=== PATIENT | male | born 1985 | race American Indian/Alaskan Native ===

== ENCOUNTER 2016-06-06 13:15 | Inpatient (IN) | payer OTHER ==
[2016-06-06 13:46] LABS: Urine Drugs of Abuse Note Disclamer
--- NOTE | 2016-06-06 13:54 | Emergency Department Report ---
ED General Adult HPI - General Chief complaint: Overdose Stated complaint: OD Time Seen by Provider: 06/06/16 13:45 Source: EMS (ems notes not available at time of chart dictation) Mode of arrival: Stretcher Limitations: Altered Mental Status - History of Present Illness Initial comments: History is limited from the patient because he is somnolent and sleepy. History obtained by speaking to the patient's fiance, Miss Kennedi Villeda; . The patient's fianc, abscess less around 12:00 PM, the patient became depressed after he received a phone call from his son. Today is the patient's birthday. The patient ingested an unknown quantity of Seroquel, 200 mg, Xanax, and marijuana and alcohol. The patient is evasive as to the nature of his ingestion, he will not answer questions directly about homicidality or suicidality. He is somewhat sleepy and difficult to arouse, but he is arousable and is protecting his airway. -: Gradual Consistency: constant Improves with: none Worsens with: none Associated Symptoms: malaise, weakness - Related Data Home Medications Medication Instructions Recorded Confirmed Last Taken Quetiapine Fumarate [SEROquel XR] 200 mg PO HS 06/06/16 06/06/16 06/06/16 Allergies Allergy/AdvReac Type Severity Reaction Status Date / Time Penicillins Allergy Unknown Verified 06/06/16 13:16 ED Review of Systems ROS: Stated complaint: OD Other details as noted in HPI Constitutional: denies: fever Eyes: denies: eye discharge ENT: denies: epistaxis Respiratory: denies: cough Cardiovascular: denies: chest pain Gastrointestinal: denies: vomiting Genitourinary: as per HPI Musculoskeletal: as per HPI Skin: as per HPI Neurological: as per HPI, weakness, confusion Psychiatric: depression ED Past Medical Hx - Past Medical History Previous Medical History?: Yes Hx Psychiatric Treatment: Yes (PTSD) - Surgical History Additional Surgical History: unknown - Social History Smoking Status: Current Every Day Smoker Substance Use Type: Alcohol, Marijuana, Prescribed - Medications Home Medications: Home Medications Medication Instructions Recorded Confirmed Last Taken Type Quetiapine Fumarate [SEROquel XR] 200 mg PO HS 06/06/16 06/06/16 06/06/16 History ED Physical Exam - General Limitations: Physical Limitation General appearance: lethargic - Head Head exam: Present: atraumatic, normocephalic - Eye Eye exam: Present: normal appearance, EOMI. Absent: nystagmus - ENT ENT exam: Present: normal exam, normal orophraynx, mucous membranes moist, normal external ear exam - Neck Neck exam: Present: normal inspection, full ROM. Absent: tenderness, meningismus - Respiratory Respiratory exam: Present: normal lung sounds bilaterally. Absent: respiratory distress, wheezes, rales, rhonchi, stridor, decreased breath sounds - Cardiovascular Cardiovascular Exam: Present: regular rate, normal rhythm, normal heart sounds. Absent: bradycardia, tachycardia, irregular rhythm, systolic murmur, diastolic murmur, rubs, gallop - GI/Abdominal GI/Abdominal exam: Present: soft, normal bowel sounds. Absent: distended, tenderness, guarding, rebound, rigid, pulsatile mass - Rectal Rectal exam: Present: deferred - Extremities Exam Extremities exam: Present: normal inspection, full ROM, normal capillary refill. Absent: pedal edema, joint swelling, calf tenderness - Back Exam Back exam: Present: normal inspection, full ROM. Absent: tenderness, CVA tenderness (R), CVA tenderness (L), muscle spasm, paraspinal tenderness, vertebral tenderness - Neurological Exam Neurological exam: Present: altered, other (the patient will respond to some questions, he moves 4 extremities spontaneously. There is no obvious facial droop.) - Psychiatric Psychiatric exam: Present: flat affect - Skin Skin exam: Present: warm, dry, intact, normal color. Absent: rash ED Course Vital Signs 06/06/16 06/06/16 06/06/16 13:15 13:17 13:20 Temperature 97.8 F Pulse Rate 76 85 Respiratory 17 16 17 Rate Blood Pressure 126/86 126/86 O2 Sat by Pulse 99 98 Oximetry 06/06/16 06/06/16 06/06/16 13:30 13:40 13:50 Temperature Pulse Rate 89 91 H 90 Respiratory 18 14 15 Rate Blood Pressure 133/90 133/90 132/92 O2 Sat by Pulse 98 99 99 Oximetry 06/06/16 06/06/16 06/06/16 14:00 14:10 14:20 Temperature Pulse Rate 94 H 86 80 Respiratory 17 12 17 Rate Blood Pressure 139/90 139/90 124/80 O2 Sat by Pulse 98 98 98 Oximetry 06/06/16 06/06/16 06/06/16 14:23 14:30 14:50 Temperature Pulse Rate 79 82 Respiratory 18 17 20 Rate Blood Pressure 130/87 131/80 O2 Sat by Pulse 100 97 98 Oximetry 06/06/16 15:00 Temperature Pulse Rate 85 Respiratory 17 Rate Blood Pressure 119/73 O2 Sat by Pulse 98 Oximetry - Reevaluation(s) Reevaluation #1: 06/06/16 14:58 Differential diagnosis: Toxic encephalopathy, metabolic encephalopathy, mood disorder, suicidality, depression Assessment and plan: 31-year-old male status post overdose on multiple sedating medications, he presented more than one hour after ingestion, and is somnolent but protecting his airway. He presented to lay in his clinical course for charcoal administration, especially given his somnolent mental status, he is at risk for aspiration, and the risks of charcoal outweigh the benefits. Given his mental status changes, laboratory studies, x-ray of the chest, EKG, cardiac cath lab manager, CT scan is ordered. I don't believe patient is medically stable for psychiatric placement at this time. Case is discussed with the [place] [facility], discussed with Safia, agrees with supportive care , recommends four-hour Tylenol and aspirin level. Case is discussed with the Hospital physician, Dr. Walsh, who accepts the patient to his service. Inpatient team to follow up on repeat Tylenol and aspirin levels. ED Medical Decision Making - Lab Data Result diagrams: 06/06/16 13:37 06/06/16 13:37 Vital Signs 06/06/16 06/06/16 06/06/16 13:15 13:17 13:20 Temperature 97.8 F Pulse Rate 76 85 Respiratory 17 16 17 Rate Blood Pressure 126/86 126/86 O2 Sat by Pulse 99 98 Oximetry 06/06/16 06/06/16 06/06/16 13:30 13:40 13:50 Temperature Pulse Rate 89 91 H 90 Respiratory 18 14 15 Rate Blood Pressure 133/90 133/90 132/92 O2 Sat by Pulse 98 99 99 Oximetry 06/06/16 06/06/16 06/06/16 14:00 14:10 14:20 Temperature Pulse Rate 94 H 86 80 Respiratory 17 12 17 Rate Blood Pressure 139/90 139/90 124/80 O2 Sat by Pulse 98 98 98 Oximetry 06/06/16 06/06/16 06/06/16 14:23 14:30 14:50 Temperature Pulse Rate 79 82 Respiratory 18 17 20 Rate Blood Pressure 130/87 131/80 O2 Sat by Pulse 100 97 98 Oximetry Labs 06/06/16 06/06/16 06/06/16 13:31 13:31 13:37 WBC RBC Hgb Hct MCV MCH MCHC RDW Plt Count Lymph % (Auto) [place] % (Auto) Eos % (Auto) Baso % (Auto) Lymph # [place] # Eos # Baso # Seg Neutrophils % Seg Neutrophils # Sodium 141 Potassium 4.0 Chloride 101.4 Carbon Dioxide 26 Anion Gap 18 BUN 12 Creatinine 1.1 Estimated GFR > 60 BUN/Creatinine Ratio 10.90 Glucose 90 Calcium 9.1 Total Creatine Kinase Urine Color Yellow Urine Turbidity Clear Urine pH 6.0 Ur Specific [place] 1.013 Urine Protein <15 mg/dl Urine Glucose (UA) Neg Urine Ketones Neg Urine Blood Neg Urine Nitrite Neg Urine Bilirubin Neg Urine Urobilinogen < 2.0 Ur Leukocyte Esterase Neg Urine WBC (Auto) 1.0 Urine RBC (Auto) 1.0 Urine Mucus Few Urine Opiates Screen Presumptive negative Urine Methadone Screen Presumptive negative Ur Barbiturates Screen Presumptive negative Ur Phencyclidine Scrn Presumptive negative Ur Amphetamines Screen Presumptive negative U Benzodiazepines Scrn Presumptive positive Urine Cocaine Screen Presumptive negative U Marijuana (THC) Screen Presumptive positive 06/06/16 06/06/16 13:37 13:57 WBC 5.3 RBC 4.92 Hgb 14.4 Hct 44.2 MCV 90 MCH 29 MCHC 33 RDW 14.8 Plt Count 147 Lymph % (Auto) 36.5 H [place] % (Auto) 6.0 Eos % (Auto) 3.7 Baso % (Auto) 2.4 H Lymph # 1.9 [place] # 0.3 Eos # 0.2 Baso # 0.1 Seg Neutrophils % 51.4 Seg Neutrophils # 2.7 Sodium Potassium Chloride Carbon Dioxide Anion Gap BUN Creatinine Estimated GFR BUN/Creatinine Ratio Glucose Calcium Total Creatine Kinase 367 H Urine Color Urine Turbidity Urine pH Ur Specific [place] Urine Protein Urine Glucose (UA) Urine Ketones Urine Blood Urine Nitrite Urine Bilirubin Urine Urobilinogen Ur Leukocyte Esterase Urine WBC (Auto) Urine RBC (Auto) Urine Mucus Urine Opiates Screen Urine Methadone Screen Ur Barbiturates Screen Ur Phencyclidine Scrn Ur Amphetamines Screen U Benzodiazepines Scrn Urine Cocaine Screen U Marijuana (THC) Screen - EKG Data When compared to previous EKG there are: previous EKG unavailable 06/06/16 15:00 normal sinus, 89 bpm, QRS 88 ms, QTC 433 ms, normal axis, not morphologically consistent with STEMI, there is no prior EKG available for comparison. - Radiology Data Radiology results: report reviewed, image reviewed X-ray of the chest is negative. Nonspecific cardiomegaly is noted. Noncontrast CT scan of the brain is negative. Critical care attestation.: If time is entered above; I have spent that time in minutes in the direct care of this critically ill patient, excluding procedure time. ED Disposition Clinical Impression: Overdose Disposition: OP ADMITTED IP TO THIS HOSP Is pt being admited?: Yes Condition: Good
[2016-06-06 14:07] LABS: Anion Gap 18 mmol/L; Blood Urea Nitrogen 12 mg/dL (9-20); Calcium 9.1 mg/dL (8.4-10.2); Carbon Dioxide 26 mmol/L (22-30); Chloride 101.4 mmol/L (98-107); Glucose 90 mg/dL (75-100); Sodium 141 mmol/L (137-145)
[2016-06-06 14:11] LABS: Basophils % (Auto) 2.4 % (0.0-1.8); Eosinophils % (Auto) 3.7 % (0.0-4.3); Hematocrit 44.2 % (35.5-45.6); Hemoglobin 14.4 gm/dl (11.8-15.2); Mean Corpuscular HGB Conc 33 % (32-34); Mean Corpuscular Hemoglobin 29 pg (28-32); Mean Corpuscular Volume 90 fl (84-94); Platelet Count 147 K/mm3 (140-440); Red Blood Count 4.92 M/mm3 (3.65-5.03); Red Cell Distribution Width 14.8 % (13.2-15.2); White Blood Count 5.3 K/mm3 (4.5-11.0)
[2016-06-06 14:17] LABS: Bilirubin,Urine NEG (Negative); Blood,Urine NEG (Negative); Ketones,Urine NEG (Negative); Leukocyte Esterase,Urine NEG (Negative); Mucus,Urine FEW /HPF; Nitrite,Urine NEG (Negative); Protein,Urine <15 mg/dL mg/dL (Negative); Urobilinogen,Urine < 2.0 mg/dL (<2.0)
--- NOTE | 2016-06-06 15:07 | Cat Scan Report ---
FINAL REPORT PROCEDURE: CT HEAD/BRAIN WO CON TECHNIQUE: Computerized tomography of the head was performed without contrast material. HISTORY: ams COMPARISON: No prior studies are available for comparison. FINDINGS: Small retention cyst is suspected in the right maxillary sinus. Mastoid air cells appear clear. No calvarial fracture is seen. Cerebral ventricles are normal in size. No acute intracranial hemorrhage or mass effect is seen. No CVA is seen. IMPRESSION: Mild changes of chronic sinusitis are seen. No intracranial abnormality is seen.
--- NOTE | 2016-06-06 15:51 | History and Physical Report ---
History of Present Illness Chief complaint: confused History of present illness: 31 YO Male with PTSD, nicotine Dependence, Polysubstance Abuse presents to ED for evaluation. Pt lethargic and unable to give history. History taken from marilu, Miss Kennedi Villeda([phone]). The patient's fianc, states that the patient became upset around 2400hrs after a distressing telephone call from his son. The patient subsequently ingested an unknown quantity of Seroquel, 200 mg, Xanax, as well as marijuana and alcohol. The patient is lethargic and will not answer questions regarding his intentions. Poison control notified in ED. Pt is able to protect his airway. Past History Past Medical History: other (PSA, icotine Dependence, PTSD) Past Surgical History: No surgical history, Other (reviewed) Social history: single, smoking, alcohol abuse, prescription drug abuse Family history: hypertension Medications and Allergies Allergies Allergy/AdvReac Type Severity Reaction Status Date / Time Penicillins Allergy Unknown Verified 06/06/16 13:16 Home Medications Medication Instructions Recorded Confirmed Last Taken Type Quetiapine Fumarate [SEROquel XR] 200 mg PO HS 06/06/16 06/06/16 06/06/16 History Review of Systems ROS unobtainable: due to mental status Constitutional: other Exam - Constitutional Vitals: Temp Pulse Resp BP Pulse Ox 97.8 F 85 17 119/73 98 06/06/16 13:17 06/06/16 15:00 06/06/16 15:00 06/06/16 15:00 06/06/16 15:00 General appearance: Present: mild distress - EENT Eyes: Present: PERRL ENT: hearing intact, clear oral mucosa - Neck Neck: Present: supple, normal ROM - Respiratory Respiratory effort: normal Respiratory: bilateral: CTA - Cardiovascular Heart Sounds: Present: S1 & S2. Absent: rub, click - Extremities Extremities: pulses symmetrical, No edema Peripheral Pulses: within normal limits - Abdominal General gastrointestinal: Present: soft, non-tender, non-distended, normal bowel sounds Male genitourinary: Present: normal - Integumentary Integumentary: Present: clear, warm, dry - Musculoskeletal Musculoskeletal: generalized weakness - Psychiatric Psychiatric: no intact judgment & insight, no memory intact, no agitated - Neurologic Neurologic: CNII-XII intact, moves all extremities Results - Labs CBC & Chem 7: 06/06/16 13:37 06/06/16 13:37 Labs: Abnormal lab results 06/06/16 06/06/16 06/06/16 Range/Units 13:37 13:37 13:37 Lymph % (Auto) 36.5 H (13.4-35.0) % Baso % (Auto) 2.4 H (0.0-1.8) % Total Creatine Kinase (55-170) units/L Salicylates < 0.3 L (2.8-20.0) mg/dL Plasma/Serum Alcohol 0.10 H (0-0.07) gm% 06/06/16 Range/Units 13:57 Lymph % (Auto) (13.4-35.0) % Baso % (Auto) (0.0-1.8) % Total Creatine Kinase 367 H (55-170) units/L Salicylates (2.8-20.0) mg/dL Plasma/Serum Alcohol (0-0.07) gm% Assessment and Plan - Patient Problems (1) Encephalopathy Current Visit: Yes Status: Acute Plan to address problem: IVF, suportive care, remote telemetry montoring, supportive care, neuro checks (2) Suicide attempt Current Visit: Yes Status: Acute Plan to address problem: Psych consulted: [address], supportive care. (3) Overdose Current Visit: Yes Status: Acute Qualifiers: Encounter type: E Injury intent: I Plan to address problem: supportive care, IVF, monitor uop q shift, neuro checks (4) DVT prophylaxis Current Visit: Yes Status: Acute
[2016-06-06] MEDS ORDERED: TYLENOL PO PRN (16:30)
[2016-06-06] MEDS ORDERED: ZOFRAN IV PRN (16:30)
[2016-06-06] MEDS ORDERED: VITAMIN B-1 100 MG, FOLVITE 1 MG, INFUVITE 10 ML in NACL 0.9% 1000 ML 1,000 ML IV ONE (16:32)
[2016-06-06] MEDS: DUONEB 0.5 MG-3 MG/3 ML SOLN IH SCH ×2 (17:42→20:03)
[2016-06-06] MEDS ORDERED: PROVENTIL IH PRN (21:07)
[2016-06-07] MEDS: NACL 0.45% 1000 ML 1,000 ML IV SCH ×2 (03:35→13:24)
--- NOTE | 2016-06-07 09:53 | XRay Report ---
Single view chest: History: AMS. Shortness of breath. Findings: Borderline cardiomegaly. Trachea is midline. No consolidation, pneumothorax or pleural effusion. Impression: No acute cardiopulmonary findings.
--- NOTE | 2016-06-07 12:31 | Progress Note ---
Assessment and Plan Assessment and plan: 1. Acute toxic encephalopathy Secondary to overdose IV fluids, frequent neuro checks, supportive care Improving 2. Overdose Overdose of combination of Seroquel, Xanax, alcohol and marijuana with suicide intent Placed on 1013 Awaiting psychiatry evaluation 3. Suicide attempt See above 4. Polysubstance abuse Psych consulted, will need counseling/? inpatient detox 5. Tobacco dependence Counselled regarding importance of quitting 7. PTSD 8. DVT prophylaxis History Interval history: mental status improved, no specific complaints Hospitalist Physical - Constitutional Vitals: Temp Pulse Resp BP Pulse Ox 98.8 F 77 18 124/80 100 06/07/16 11:20 06/07/16 11:20 06/07/16 11:20 06/07/16 11:20 06/07/16 11:20 General appearance: Present: no acute distress, obese - EENT Eyes: Present: PERRL, EOM intact. Absent: scleral icterus, conjunctival injection - Neck Neck: Present: supple, normal ROM. Absent: masses or JVD - Respiratory Respiratory effort: normal Respiratory: bilateral: CTA, negative: rhonchi, wheezing - Cardiovascular Rhythm: regular Heart Sounds: Present: S1 & S2. Absent: systolic murmur - Extremities Extremities: no ischemia - Abdominal General gastrointestinal: soft, non-tender, non-distended, normal bowel sounds - Psychiatric Psychiatric: depressed - Neurologic Neurologic: CNII-XII intact, no focal deficits Results - Labs CBC & Chem 7: 06/06/16 13:37 06/06/16 13:37 Labs: Laboratory Last Values WBC 5.3 K/mm3 (4.5-11.0) 06/06/16 13:37 RBC 4.92 M/mm3 (3.65-5.03) 06/06/16 13:37 Hgb 14.4 gm/dl (11.8-15.2) 06/06/16 13:37 Hct 44.2 % (35.5-45.6) 06/06/16 13:37 MCV 90 fl (84-94) 06/06/16 13:37 MCH 29 pg (28-32) 06/06/16 13:37 MCHC 33 % (32-34) 06/06/16 13:37 RDW 14.8 % (13.2-15.2) 06/06/16 13:37 Plt Count 147 K/mm3 (140-440) 06/06/16 13:37 Lymph % (Auto) 36.5 % (13.4-35.0) H 06/06/16 13:37 [place] % (Auto) 6.0 % (0.0-7.3) 06/06/16 13:37 Eos % (Auto) 3.7 % (0.0-4.3) 06/06/16 13:37 Baso % (Auto) 2.4 % (0.0-1.8) H 06/06/16 13:37 Lymph # 1.9 K/mm3 (1.2-5.4) 06/06/16 13:37 [place] # 0.3 K/mm3 (0.0-0.8) 06/06/16 13:37 Eos # 0.2 K/mm3 (0.0-0.4) 06/06/16 13:37 Baso # 0.1 K/mm3 (0.0-0.1) 06/06/16 13:37 Seg Neutrophils % 51.4 % (40.0-70.0) 06/06/16 13:37 Seg Neutrophils # 2.7 K/mm3 (1.8-7.7) 06/06/16 13:37 Sodium 141 mmol/L (137-145) 06/06/16 13:37 Potassium 4.0 mmol/L (3.6-5.0) 06/06/16 13:37 Chloride 101.4 mmol/L (98-107) 06/06/16 13:37 Carbon Dioxide 26 mmol/L (22-30) 06/06/16 13:37 Anion Gap 18 mmol/L 06/06/16 13:37 BUN 12 mg/dL (9-20) 06/06/16 13:37 Creatinine 1.1 mg/dL (0.8-1.5) 06/06/16 13:37 Estimated GFR > 60 ml/min 06/06/16 13:37 BUN/Creatinine Ratio 10.90 % 06/06/16 13:37 Glucose 90 mg/dL (75-100) 06/06/16 13:37 Calcium 9.1 mg/dL (8.4-10.2) 06/06/16 13:37 Total Creatine Kinase 367 units/L (55-170) H 06/06/16 13:57 Urine Color Yellow (Yellow) 06/06/16 13:31 Urine Turbidity Clear (Clear) 06/06/16 13:31 Urine pH 6.0 (5.0-7.0) 06/06/16 13:31 Ur Specific [place] 1.013 (1.003-1.030) 06/06/16 13:31 Urine Protein <15 mg/dl mg/dL (Negative) 06/06/16 13:31 Urine Glucose (UA) Neg mg/dL (Negative) 06/06/16 13:31 Urine Ketones Neg mg/dL (Negative) 06/06/16 13:31 Urine Blood Neg (Negative) 06/06/16 13:31 Urine Nitrite Neg (Negative) 06/06/16 13:31 Urine Bilirubin Neg (Negative) 06/06/16 13:31 Urine Urobilinogen < 2.0 mg/dL (<2.0) 06/06/16 13:31 Ur Leukocyte Esterase Neg (Negative) 06/06/16 13:31 Urine WBC (Auto) 1.0 /HPF (0.0-6.0) 06/06/16 13:31 Urine RBC (Auto) 1.0 /HPF (0.0-6.0) 06/06/16 13:31 Urine Mucus Few /HPF 06/06/16 13:31 Salicylates < 0.3 mg/dL (2.8-20.0) L 06/06/16 16:30 Urine Opiates Screen Presumptive negative 06/06/16 13:31 Urine Methadone Screen Presumptive negative 06/06/16 13:31 Acetaminophen < 15.0 ug/mL (10.0-30.0) 06/06/16 16:30 Ur Barbiturates Screen Presumptive negative 06/06/16 13:31 Ur Phencyclidine Scrn Presumptive negative 06/06/16 13:31 Ur Amphetamines Screen Presumptive negative 06/06/16 13:31 U Benzodiazepines Scrn Presumptive positive 06/06/16 13:31 Urine Cocaine Screen Presumptive negative 06/06/16 13:31 U Marijuana (THC) Screen Presumptive positive 06/06/16 13:31 Drugs of Abuse Note Disclamer 06/06/16 13:31 Plasma/Serum Alcohol 0.10 gm% (0-0.07) H 06/06/16 13:37
[2016-06-08] MEDS: NACL 0.45% 1000 ML 1,000 ML IV SCH (00:10)
--- NOTE | 2016-06-08 11:08 | Progress Note ---
Assessment and Plan Assessment and plan: Patient is a 31-year-old man history of tobacco dependency, mental disorder with depression and PTSD who presents with altered mental status after ingesting combination of Seroquel, alcohol and Xanax 1. Acute toxic encephalopathy Secondary to overdose IV fluids, frequent neuro checks, supportive care Improving 2. Overdose Overdose of combination of Seroquel, Xanax, alcohol and marijuana with suicide intent Placed on 1013 Awaiting psychiatry evaluation 3. Suicide attempt See above 4. Polysubstance abuse Psych consulted, will need counseling/? inpatient detox 5. Tobacco dependence Counselled regarding importance of quitting 7. PTSD 8. DVT prophylaxis Disposition: Await psych evaluation, sitter at bedside patient is under 1013, order a.m. labs History Interval history: Patient seen and examined. Follow up on altered mental status which has resolved.. Overnight uneventful. No cp, sob, n/v or severe headaches. Imaging, old records, testing, labs, nursing notes reviewed. Plan discussed with patient. Girlfriend Ms Villeda at bedside Hospitalist Physical - Physical exam Narrative exam: GEN: WDWN, NAD, AWAKE, ALERT, ORIENTATED 3 HEENT: NCAT, PERRL, EOMI, OP CLEAR NECK: SUPPLE, NO THYROMEGALY, NO JVD, NO LAD CVS: RRR, NORMAL S1S2 LUNGS/CHEST: CTA B, NORMAL CHEST EXPANSION B, GOOD AIR ENTRY B ABD: SOFT NTND, GBS, NO REBOUND OR GUARDING EXT/SKIN: NO SIGNIFICANT EDEMA OR RASH MSK: FROM X 4 EXTREMITIES NEURO: CN 2-12 GROSSLY INTACT, NO new FOCAL DEFICITS PSY: CALM - Constitutional Vitals: Temp Pulse Resp BP Pulse Ox 99 F 69 18 142/79 98 06/08/16 09:17 06/08/16 09:17 06/08/16 09:17 06/08/16 09:17 06/08/16 09:58 General appearance: Present: no acute distress, obese Results - Labs CBC & Chem 7: 06/06/16 13:37 06/06/16 13:37 Labs: Laboratory Last Values WBC 5.3 K/mm3 (4.5-11.0) 06/06/16 13:37 RBC 4.92 M/mm3 (3.65-5.03) 06/06/16 13:37 Hgb 14.4 gm/dl (11.8-15.2) 06/06/16 13:37 Hct 44.2 % (35.5-45.6) 06/06/16 13:37 MCV 90 fl (84-94) 06/06/16 13:37 MCH 29 pg (28-32) 06/06/16 13:37 MCHC 33 % (32-34) 06/06/16 13:37 RDW 14.8 % (13.2-15.2) 06/06/16 13:37 Plt Count 147 K/mm3 (140-440) 06/06/16 13:37 Lymph % (Auto) 36.5 % (13.4-35.0) H 06/06/16 13:37 [place] % (Auto) 6.0 % (0.0-7.3) 06/06/16 13:37 Eos % (Auto) 3.7 % (0.0-4.3) 06/06/16 13:37 Baso % (Auto) 2.4 % (0.0-1.8) H 06/06/16 13:37 Lymph # 1.9 K/mm3 (1.2-5.4) 06/06/16 13:37 [place] # 0.3 K/mm3 (0.0-0.8) 06/06/16 13:37 Eos # 0.2 K/mm3 (0.0-0.4) 06/06/16 13:37 Baso # 0.1 K/mm3 (0.0-0.1) 06/06/16 13:37 Seg Neutrophils % 51.4 % (40.0-70.0) 06/06/16 13:37 Seg Neutrophils # 2.7 K/mm3 (1.8-7.7) 06/06/16 13:37 Sodium 141 mmol/L (137-145) 06/06/16 13:37 Potassium 4.0 mmol/L (3.6-5.0) 06/06/16 13:37 Chloride 101.4 mmol/L (98-107) 06/06/16 13:37 Carbon Dioxide 26 mmol/L (22-30) 06/06/16 13:37 Anion Gap 18 mmol/L 06/06/16 13:37 BUN 12 mg/dL (9-20) 06/06/16 13:37 Creatinine 1.1 mg/dL (0.8-1.5) 06/06/16 13:37 Estimated GFR > 60 ml/min 06/06/16 13:37 BUN/Creatinine Ratio 10.90 % 06/06/16 13:37 Glucose 90 mg/dL (75-100) 06/06/16 13:37 POC Glucose 90 (70-105) 06/06/16 13:23 Calcium 9.1 mg/dL (8.4-10.2) 06/06/16 13:37 Total Creatine Kinase 367 units/L (55-170) H 06/06/16 13:57 Urine Color Yellow (Yellow) 06/06/16 13:31 Urine Turbidity Clear (Clear) 06/06/16 13:31 Urine pH 6.0 (5.0-7.0) 06/06/16 13:31 Ur Specific [place] 1.013 (1.003-1.030) 06/06/16 13:31 Urine Protein <15 mg/dl mg/dL (Negative) 06/06/16 13:31 Urine Glucose (UA) Neg mg/dL (Negative) 06/06/16 13:31 Urine Ketones Neg mg/dL (Negative) 06/06/16 13:31 Urine Blood Neg (Negative) 06/06/16 13:31 Urine Nitrite Neg (Negative) 06/06/16 13:31 Urine Bilirubin Neg (Negative) 06/06/16 13:31 Urine Urobilinogen < 2.0 mg/dL (<2.0) 06/06/16 13:31 Ur Leukocyte Esterase Neg (Negative) 06/06/16 13:31 Urine WBC (Auto) 1.0 /HPF (0.0-6.0) 06/06/16 13:31 Urine RBC (Auto) 1.0 /HPF (0.0-6.0) 06/06/16 13:31 Urine Mucus Few /HPF 06/06/16 13:31 Salicylates < 0.3 mg/dL (2.8-20.0) L 06/06/16 16:30 Urine Opiates Screen Presumptive negative 06/06/16 13:31 Urine Methadone Screen Presumptive negative 06/06/16 13:31 Acetaminophen < 15.0 ug/mL (10.0-30.0) 06/06/16 16:30 Ur Barbiturates Screen Presumptive negative 06/06/16 13:31 Ur Phencyclidine Scrn Presumptive negative 06/06/16 13:31 Ur Amphetamines Screen Presumptive negative 06/06/16 13:31 U Benzodiazepines Scrn Presumptive positive 06/06/16 13:31 Urine Cocaine Screen Presumptive negative 06/06/16 13:31 U Marijuana (THC) Screen Presumptive positive 06/06/16 13:31 Drugs of Abuse Note Disclamer 06/06/16 13:31 Plasma/Serum Alcohol 0.10 gm% (0-0.07) H 06/06/16 13:37
[2016-06-08] MEDS: FOLVITE PO SCH (16:43)
[2016-06-08] MEDS: VITAMIN B-1 PO SCH (16:43)
[2016-06-09 05:41] LABS: Hematocrit 45.1 % (35.5-45.6); Hemoglobin 14.8 gm/dl (11.8-15.2); Mean Corpuscular HGB Conc 33 % (32-34); Mean Corpuscular Hemoglobin 29 pg (28-32); Mean Corpuscular Volume 89 fl (84-94); Platelet Count 153 K/mm3 (140-440); Red Blood Count 5.05 M/mm3 (3.65-5.03); Red Cell Distribution Width 14.4 % (13.2-15.2); White Blood Count 4.9 K/mm3 (4.5-11.0)
[2016-06-09 05:59] LABS: Anion Gap 19 mmol/L; Blood Urea Nitrogen 10 mg/dL (9-20); Calcium 9.1 mg/dL (8.4-10.2); Carbon Dioxide 24 mmol/L (22-30); Chloride 99.7 mmol/L (98-107); Glucose 99 mg/dL (75-100); Potassium 4.2 mmol/L (3.6-5.0); Sodium 138 mmol/L (137-145)
--- NOTE | 2016-06-09 08:09 | Admit Criteria Form ---
Admission Criteria Documentation: DRUG INGESTION OR OVERDOSE Clinical Indications for Admission to Inpatient Care ( Place 'X' for any and all applicable criteria): Admission is indicated for severe toxicity as indicated by ANY ONE of the following(1)(2)(3)(4)(5)(6): [X]I. Inpatient admission required rather than observation care (Also use Drug Ingestion or Overdose: Observation Care guideline as appropriate) because of ANY ONE of the following: [X]a) Altered mental status that is severe or persistent [ ]b) Clinical finding (eg, metabolic acidosis, hypoglycemia, bradycardia) that is severe or persistent [ ]c) Toxic drug level that is persistent [ ]d) Psychiatric risk status not acceptable for outpatient management [ ]e) Continuous intravenous infusion of anticoagulation, platelet inhibitor, vasoactive, or antiarrhythmic medication (15)(16) [X]f) Other condition, treatment or monitoring requiring inpatient admission [ ]II. Respiratory abnormalities [ ]III. Specific finding indicating severe and likely prolonged drug toxicity [ ]IV. Hemodynamic instability [ ]V. Dangerous arrhythmia [ ]. Hypertension requiring inpatient treatment Extended stay beyond goal length of stay may be needed for (4): [ ]a) Neurologic or respiratory compromise [ ]b) Hemodynamic instability [ ]c) Persistent toxic drug levels (25) [ ]d) Severe drug toxicities or complications [ ]e) Ongoing antidote treatment (eg, acetaminophen overdose)(5) [ ]f) Older patients(65 years or older) The original [facility] content created by [employer] has been revised. The portions of the content which have been revised are identified through the use of italic text or in bold, and [facility] has neither reviewed nor approved the modified material. All other unmodified content is copyright [facility] [employer]. Please see references footnoted in the original [facility] edition 2016 Admission Criteria Met: Yes
[2016-06-09] MEDS: FOLVITE PO SCH (10:07)
[2016-06-09] MEDS: VITAMIN B-1 PO SCH (10:07)
--- NOTE | 2016-06-09 16:04 | Progress Note ---
Assessment and Plan Assessment and Plan 1. Acute toxic encephalopathy secondary to overdose: Improving. Supportive care , IVF. 2. Suicidal attempt: On 101, awaiting psych eval. 3. Polysubstance abuse: Awaiting psych eval, counseled patient. 4. Tobacoo use do: Counseled on tobacco cessation. 5. PTSD: Continue current management. 6. DVT prophylaxis Subjective Date of service: 06/09/16 Interval history: No overnight events. Awaiting psych. Objective - Constitutional Vitals: Vital Signs - 12hr 06/09/16 08:00 Temperature 98.8 F Pulse Rate [ 68 Right Radial] Respiratory 18 Rate Blood Pressure 143/92 [Right Arm] O2 Sat by Pulse 95 Oximetry General appearance: Present: no acute distress, well-nourished - EENT Eyes: PERRL, EOM intact ENT: hearing intact, clear oral mucosa Ears: bilateral: normal - Neck Neck: supple, normal ROM - Respiratory Respiratory effort: normal Respiratory: bilateral: CTA - Breasts Breasts: normal - Cardiovascular Rhythm: regular Heart Sounds: Present: S1 & S2. Absent: gallop, rub Extremities: pulses intact, No edema, normal color, Full ROM - Gastrointestinal General gastrointestinal: Present: soft, non-tender, non-distended, normal bowel sounds - Genitourinary Male genitourinary: normal - Integumentary Integumentary: clear, warm, dry - Musculoskeletal Musculoskeletal: 1, strength equal bilaterally - Neurologic Neurologic: moves all extremities - Psychiatric Psychiatric: memory intact, appropriate mood/affect, intact judgment & insight - Labs CBC & Chem 7: 06/09/16 05:22 06/09/16 05:22 Labs: Abnormal lab results 06/09/16 Range/Units 05:22 RBC 5.05 H (3.65-5.03) M/mm3
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
[2016-06-09] MEDS ORDERED: PAXIL PO SCH (18:30)
[2016-06-09] MEDS ORDERED: MINIPRESS PO SCH (22:00)
--- NOTE | 2016-06-09 22:36 | Event Note ---
Date: 06/09/16 At 1612 06/09/16 I discussed Black Box warning with patient about possible suicidality and medication induced darryl (SSRIs).
[2016-06-10] MEDS: VITAMIN B-1 PO SCH (09:59)
[2016-06-10] MEDS: FOLVITE PO SCH (09:59)
[2016-06-10] MEDS ORDERED: PAXIL PO SCH (10:00)
--- NOTE | 2016-06-10 13:29 | Progress Note ---
Assessment and Plan Assessment and Plan 1. Acute toxic encephalopathy secondary to overdose: Resolved 2. Suicidal attempt: On 101, psych following patient, no longer suicidal. Has his girl friend by his side. Want to take him home and be supportive. 3. Polysubstance abuse: Psych following patient. 4. Tobacoo use do: Counseled on tobacco cessation. 5. PTSD: On Paxil 20 mg qd. 6. Nightmares: On Prazosin 1 mg qhs. 7. DVT prophylaxis 8. Disposition. Discussed with the psychiatrist, Dr. Harp who advised that pt can be off 1013 and can be discharged home. Subjective Date of service: 06/10/16 Principal diagnosis: Suicide ateempt, Depression, PTSD Interval history: No suicidal or homicidal ideations, has nightmares. Objective - Constitutional Vitals: Vital Signs - 12hr 06/10/16 06/10/16 07:00 09:00 Temperature 98 F Pulse Rate [ 77 Right Radial] Respiratory 18 20 Rate Blood Pressure 111/64 [Right Arm] O2 Sat by Pulse 98 100 Oximetry General appearance: Present: no acute distress, well-nourished - EENT Eyes: PERRL, EOM intact ENT: hearing intact, clear oral mucosa Ears: bilateral: normal - Neck Neck: supple, normal ROM - Respiratory Respiratory effort: normal Respiratory: bilateral: CTA - Breasts Breasts: normal - Cardiovascular Rhythm: regular Heart Sounds: Present: S1 & S2. Absent: gallop, rub Extremities: pulses intact, No edema, normal color, Full ROM - Gastrointestinal General gastrointestinal: Present: soft, non-tender, non-distended, normal bowel sounds - Genitourinary Male genitourinary: normal - Integumentary Integumentary: clear, warm, dry - Musculoskeletal Musculoskeletal: 1, strength equal bilaterally - Neurologic Neurologic: moves all extremities - Psychiatric Psychiatric: memory intact, appropriate mood/affect, intact judgment & insight - Labs CBC & Chem 7: 06/09/16 05:22 06/09/16 05:22
[2016-06-10 17:10] VITALS: BP 115/84
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
--- NOTE | 2016-06-10 18:59 | Discharge Summary ---
Providers - Providers Date of Admission: 06/06/16 16:30 Date of discharge: 06/10/16 Attending physician: JOSE ANTONIO DUPREE Psychiatrist - Dr Harp Primary care physician: HAND SOLE SEWER Hospitalization Reason for admission: Polysubstance ovrdose with suicidal intent Condition: Good Pertinent studies: CT head was unramarkable for any acute event Chest Xray was normal Procedures: none Hospital course: Pt is a 31 y/o male with PTSD an tobacco dependent who took an over dose of his Xanax, Seroquel, alcohol and Marijuana because he received a distress call from his son. Presented to the ED at [facility], [facility]. CT of the brain was unremarkable and CXR was normal. Pt could clear his air way. Was admitted on 1012. He had since improved his level of cognition. Psych consult was obtained on admission. Pt was clear to go home by Psychiatrist Dr. Harp, as he has a strong support with his girlfriend who accompanied him to the hospital in the first place and has been by his bed side since then. Pt verbalized not having any more suicidal thoughts. He is therefore being discharged to f/u with his psychiatrist and PCP in 7 days and 3 days respectively. Disposition: DISCHARGED TO HOME OR SELFCARE Core Measure Documentation - Palliative Care Palliative Care/ Comfort Measures: Not Applicable - Core Measures Any of the following diagnoses?: none Exam - Constitutional Vitals: Temp Pulse Resp BP Pulse Ox 98.4 F 84 18 115/84 98 06/10/16 17:00 06/10/16 17:00 06/10/16 17:00 06/10/16 17:00 06/10/16 17:00 General appearance: Present: no acute distress, well-nourished - EENT Eyes: Present: PERRL ENT: hearing intact, clear oral mucosa - Neck Neck: Present: supple, normal ROM - Respiratory Respiratory effort: normal Respiratory: bilateral: CTA - Cardiovascular Heart Sounds: Present: S1 & S2. Absent: rub, click - Extremities Extremities: pulses symmetrical, No edema Peripheral Pulses: within normal limits - Abdominal General gastrointestinal: Present: soft, non-tender, non-distended, normal bowel sounds Male genitourinary: Present: normal - Integumentary Integumentary: Present: clear, warm, dry - Musculoskeletal Musculoskeletal: gait normal, strength equal bilaterally - Psychiatric Psychiatric: appropriate mood/affect, intact judgment & insight - Neurologic Neurologic: CNII-XII intact, moves all extremities Plan Activity: advance as tolerated Weight Bearing Status: Weight Bear as Tolerated Diet: regular Follow up with: PRIMARY CARE, [Primary Care Provider] - 7 Days
== END 2016-06-10 19:50 | disposition home or self-care (01) | DRG 917 ==
LOC: ED 13:15 → 3A 16:30
PROVIDERS: ADMIT Internal Medicine; ATTEND Family Medicine
DX: T43.592A Poisoning by other antipsychotics and neuroleptics, intentional self-harm, initial encounter (principal); G92 Toxic encephalopathy; F19.10 Other psychoactive substance abuse, uncomplicated; T42.4X2A Poisoning by benzodiazepines, intentional self-harm, initial encounter; T51.0X2A Toxic effect of ethanol, intentional self-harm, initial encounter; T40.7X2A Poisoning by cannabis (derivatives), intentional self-harm, initial encounter; F17.210 Nicotine dependence, cigarettes, uncomplicated; F43.10 Post-traumatic stress disorder, unspecified; F32.9 Major depressive disorder, single episode, unspecified; F51.5 Nightmare disorder; Y92.89 Other specified places as the place of occurrence of the external cause; Z82.49 Family history of ischemic heart disease and other diseases of the circulatory system; Z88.0 Allergy status to penicillin
CPT/HCPCS: 36415; 70450; 71010; 80048; 80307; 80320; 81001; 82550; 82962; 85025; 85027; 93005; 93010; 94640; 94760; 96365; 99406; G0480; J3411; J7030